=== PATIENT | female | born 1955 | race Caucasian/White ===

== ENCOUNTER 2022-06-11 10:00 | Outpatient (RCR) | payer MEDICARE, SELFPAY ==
--- NOTE | 2022-05-04 11:40 | PTOPEVAL ---
PHYSICAL THERAPY EVALUATION AND PLAN OF CARE 05-04-22 Thank you for referring Mary Anne Anton to [facility] for the diagnosis of sciatica. She is scheduled to be seen for therapy? 0-2 x/week for 5 weeks. She will be out of town on vacation during this timeframe. The plan of care includes treatment for her R knee. Please review, sign, date and return this plan of care IMELDA. I agree with and certify that the following plan of care is medically necessary. Referring Physician Date Attending Provider: KRISHNA Mcgarry Outpatient Past Medical History Past Medical History Source of Past Medical History Patient Neurological History Hx Neurological Disorders No Significant History Cardiovascular History Hx Hypertension Yes: meds Respiratory History Hx Respiratory Disorders No Significant History Gastrointestinal History Hx Gastrointestinal Disorders No Significant History Musculoskeletal History Hx Arthritis Yes: OA in both knees Endocrine History Hx Endocrine Disorders No Significant History Other History Hx Cancer Yes: breast cancer Hx Chemotherapy Yes Hx Radiation Therapy Yes Hx Other Medical Conditions Yes: lymphedema R UE Evaluation Information Diagnosis sciatica R radicular pain Onset March 24, 2022 Subjective Information gradual increase in pain after Query Text:As Reported By Patient/ yard work; just finished Family steroid pack- did help the pain; is leaving on a cruise and trip in 2 weeks; Diagnostic Tests X-Rays For This Problem No MRI For This Problem No Other Tests For This Problem No Prior Level of Function Activity Level (Last 3 Months) Occupation retired Comments Additional Prior Level of Function active lifestyle; Comments has recumbant exercise bicycle at home, was riding 30 min, but have not done for the past month due to R knee would not go all the way around and pain; Pain Assessment Pain Scale Pain Scale Used Numeric (1 - 10) Self Report Pain Assessment Bilateral Back Reported Pain Level 4 Pain Description Aching,Radiating,Sharp Pain Radiation Back,Right Leg Radicular Pain Location R LE lateral to calf constant Pain Frequency Chronic,Continuous Other Pain Description hurts Lowest Pain Intensity 0 Greatest Pain Intensity 4 Pain Aggravating Factors Stair Climbing Other Pain Aggravating Factors in/out car; sit to stand; go up/down stairs one step at
--- NOTE | 2022-06-06 14:56 | PCPTNOTE ---
On 06/06/22, the student, Donny Huitron, provided care and completed [facility] documentation on this patient. I have reviewed the student's documentation and agree with the findings.
--- NOTE | 2022-06-11 10:57 | PTOPEVAL ---
PHYSICAL THERAPY DISCHARGE 06-11-22 Refer to the clinical summary below, for her status today, compared to the initial evaluation. Discharge PT at this time; the goals were partially achieved. Thank you for referring Mary Anne Anton to [facility].? Please review, sign, date and return this Discharge report IMELDA. I agree with and certify that the following plan of care is medically necessary. Referring Physician Date Attending Provider: KRISHNA Mcgarry Subjective Information Mary Anne reports: she was Query Text:As Reported By Patient/ positive for covid, but had Family minimal symptoms--like sinus issues; leg is better, do not have any back pain; doing her exercises. Pain Assessment Pain Scale Pain Scale Used Numeric (1 - 10) Self Report Pain Assessment Right Knee(s) Reported Pain Level 1 Pain Description Sharp Radicular Pain Location lateral -distal thigh sharp pain Pain Frequency Chronic,Continuous Lowest Pain Intensity 1 Greatest Pain Intensity 2 Pain Aggravating Factors Walking Other Pain Aggravating Factors report walking tolerance of 10 min Additional Pain Comments taking tylenol and maloxicam for pain--helps Bilateral Back Reported Pain Level 0 Pain Frequency Chronic,Intermittent Lowest Pain Intensity 0 Greatest Pain Intensity 0 Pain Score Pain Score 1,0: Self Report Additional Pain Score Comments Oswestry self assessment functional score of 22% limitation in activity level; sit to stand transfer without an increase of pain in/out car transfer with pain in knee heat and massage help the knee pain have not gotten back to riding the stationary bike at home yet; tend to sleep in recliner due to knee more comfortable in recliner- discussed use of heat prior to bed, has not been doing that I Gross Lower Extremity Range of Motion R LE: Comments sitting: knee flexion 115' with report pain supine: knee extension 5'; hip flexion stretch 110'; hamstring stretch with SLR 80' Gross Low
== END 2022-06-11 16:19 | disposition home or self-care (01) ==
LOC: ANHPT 10:00
PROVIDERS: PCP Family Medicine; Visit Provider Physician Assistant Medical
DX: M54.30 Sciatica, unspecified side (principal)
CPT/HCPCS: 97014; 97110; 97112; 97140; 97162; 97530; G0283

== ENCOUNTER 2022-12-11 01:06 | Day surgery (SDC) | payer MEDICARE, SELFPAY ==
[2022-11-26 11:52] VITALS: BMI 28.4
--- NOTE | 2022-12-11 09:21 | WPDANESEPPF ---
Anes - Initial Pre Proc Eval Procedure: Operation Date: 12/11/22 10:30 Proposed Procedures p Screening Colonoscopy - Leander Choi MD Date/Time: 12/11/22 09:21 Surgeon: Leander Choi MD Pre Op Diagnosis: neoplasm screening Patient Data Age: 67 Gender: F Height: 1.65 m Weight: 77.5 kg Allergies Allergy/AdvReac Type Severity Reaction Status Date / Time No Known Allergies Allergy Verified 12/11/22 09:20 Home Medications Medication Instructions Recorded Confirmed Type calcium carbonate 500 mg calcium 500 mg PO DAILY 05/06/20 11/27/22 History (1,250 mg) tablet (Calcium 500) cholecalciferol (vitamin D3) 25 25 mcg PO DAILY 05/06/20 11/27/22 History mcg (1,000 unit) tablet (Vitamin D3) ferrous sulfate 325 mg (65 mg 65 mg PO DAILY 05/06/20 11/27/22 History iron) tablet (Iron (ferrous sulfate)) letrozole 2.5 mg tablet 2.5 mg PO DAILY 05/06/20 11/27/22 History pzwevvdg-wzh-pslf-FA-Ca carb-vit K 1 tablet PO DAILY 05/06/20 11/27/22 History 18 mg iron-400 mcg-500 mg tablet (Women's Multivitamin) omega-3 fatty acids 1,000 mg 1,000 mg PO DAILY 10/24/20 11/27/22 History capsule (Fish Oil Concentrate) lisinopril 10 mg tablet 10 mg PO DAILY #90 tabs 09/21/22 11/27/22 Rx acetaminophen 650 mg tablet 650 mg PO BID 11/26/22 11/27/22 History biotin 10,000 mcg capsule 10,000 mcg PO DAILY 11/26/22 11/27/22 History Patient hx anesthesia problems: none Family hx anesthesia problems: none Results Review: All pre-operative results and documents have been reviewed as part of the pre-operative evaluation. [facility] Past Medical History Medical History (Updated 11/27/22 @ 16:17 by Farida Hoskins MD) Anemia Chronic renal insufficiency, stage III (moderate) Essential hypertension H/O malignant neoplasm of breast Lymphedema of right upper extremity Sciatic leg pain Family History Family History Mother Hypertension Father Malignant neoplasm of prostate Social History Social History (Updated 11/27/22 @ 16:10 by Monica Renee MA) Smoking status: Never smoker Second hand tobacco smoke exposure: No Alcohol intake: current Alcohol use details: RARELY Substance use: never Substance use type: does not use Lack of Transportation: No Lack of Food: Never True Current Housing: I Have Housing Concerned About Future Housing: No Difficulty Paying Gas/Electric Bills: No Difficulty Paying for Meds: No Currently Unemployed: No Education: Trade/Vocational Certificate Difficulty w/ Childcare or Family Care: No Living arrangements: with family Gender identity (if verbalized by the patient): Female Spiritual care concerns: No Agree to blood products: Yes Anes - Eval Final PreProcedure Day of Procedure 12/11/22 09:21 Patient weight: overweight Heart: regular rate and rhythm Lungs: clear to auscultation Airway: Mallampati scale class II Neurological: alert and oriented Last oral intake: >/= 8 hours ASA classification: III Emergent: no Anesthetic plan: proceed Anesthesia type and monitoring: general GIVS and standard monitoring Results Review: All pre-operative results and documents have been reviewed as part of the pre-operative evaluation. Informed Consent: The patient's anesthetic plan and its attendant risks and benefits were discussed with the patient/family/POA. Questions were solicited and answers provided to the satisfaction of the patient/family/POA.
[2022-12-11 09:22] VITALS: BP 136/79; PULSE 94; RESP 18; TEMP 36.6; O2SAT 99; BMI 28.5
[2022-12-11] MEDS: LACTATED RINGERS 1,000 ML 150 ML IV CONT (09:25)
--- NOTE | 2022-12-11 09:41 | PM.HPGS ---
History of Present Illness History of Present Illness Consent: Risks, benefits, and alternatives have been discussed and questions answered. Patient agrees to proceed with procedure. Chief complaint: neoplasm screening Narrative: Mary Anne Anton is a 67 year old female Presents for screening colonoscopy. Patient's current weight appetite and bowel movements are normal. Patient denies abdominal pain. She has had no bleeding. Family history noncontributory. Review of Systems Review of Systems: Review of systems noncontributory. [facility] Past Medical History Medical History (Updated 12/11/22 @ 09:42 by Leander Choi MD) Anemia Chronic renal insufficiency, stage III (moderate) Essential hypertension H/O malignant neoplasm of breast Lymphedema of right upper extremity Sciatic leg pain Family History Family History Mother Hypertension Father Malignant neoplasm of prostate Social History Social History (Updated 11/27/22 @ 16:10 by Monica Renee MA) Smoking status: Never smoker Second hand tobacco smoke exposure: No Alcohol intake: current Alcohol use details: RARELY Substance use: never Substance use type: does not use Lack of Transportation: No Lack of Food: Never True Current Housing: I Have Housing Concerned About Future Housing: No Difficulty Paying Gas/Electric Bills: No Difficulty Paying for Meds: No Currently Unemployed: No Education: Trade/Vocational Certificate Difficulty w/ Childcare or Family Care: No Living arrangements: with family Gender identity (if verbalized by the patient): Female Spiritual care concerns: No Agree to blood products: Yes Meds Home Medications and Allergies Home Medications Medication Instructions Recorded Confirmed Type calcium carbonate 500 mg calcium 500 mg PO DAILY 05/06/20 11/27/22 History (1,250 mg) tablet (Calcium 500) cholecalciferol (vitamin D3) 25 25 mcg PO DAILY 05/06/20 11/27/22 History mcg (1,000 unit) tablet (Vitamin D3) ferrous sulfate 325 mg (65 mg 65 mg PO DAILY 05/06/20 11/27/22 History iron) tablet (Iron (ferrous sulfate)) letrozole 2.5 mg tablet 2.5 mg PO DAILY 05/06/20 11/27/22 History rsinswlz-hhu-unzh-FA-Ca carb-vit K 1 tablet PO DAILY 05/06/20 11/27/22 History 18 mg iron-400 mcg-500 mg tablet (Women's Multivitamin) omega-3 fatty acids 1,000 mg 1,000 mg PO DAILY 10/24/20 11/27/22 History capsule (Fish Oil Concentrate) lisinopril 10 mg tablet 10 mg PO DAILY #90 tabs 09/21/22 11/27/22 Rx acetaminophen 650 mg tablet 650 mg PO BID 11/26/22 11/27/22 History biotin 10,000 mcg capsule 10,000 mcg PO DAILY 11/26/22 11/27/22 History Allergies Allergy/AdvReac Type Severity Reaction Status Date / Time No Known Allergies Allergy Verified 12/11/22 09:20 Vital Signs Vital Signs - 24 hr 12/11/22 09:22 Temperature 97.9 F Pulse Rate 94 Respiratory Rate 18 Blood Pressure 136/79 Pulse Oximetry 99 Oxygen Delivery Room Air Exam Narrative: Physical exam reveals patient to be alert. Vital signs stable. HEENT exam is unremarkable. Patient is anicteric. Lungs are clear to auscultation and percussion. Heart is without murmur or extra sounds. Abdomen bowel sounds are present soft nontender with no organomegaly. Digital external rectal exam is normal. Assessment and Plan Assessment and plan (1) Encounter for screening colonoscopy: Code(s): Z12.11 - Encounter for screening for malignant neoplasm of colon Status: Acute Assessment and Plan: Patient presents for screening colonoscopy. She appears to be at average risk for colon polyps. Further recommendations may be given after endoscopy.
[2022-12-11 10:08] VITALS: BP 94/55; PULSE 74; RESP 19; O2SAT 97
[2022-12-11 10:18] VITALS: BP 101/67; PULSE 72; RESP 18; O2SAT 98
[2022-12-11 10:28] VITALS: BP 113/67; PULSE 72; RESP 15; O2SAT 99
== END 2022-12-11 10:37 | disposition home or self-care (01) ==
PROVIDERS: PCP Family Medicine; Visit Provider Internal Medicine Gastroenterology
PROC: 0DJD8ZZ Inspection of Lower Intestinal Tract, Via Natural or Artificial Opening Endoscopic (ICD-10-PCS; CPT 45378; principal; 2022-12-11 10:30)
DX: Z12.11 Encounter for screening for malignant neoplasm of colon (principal); K64.8 Other hemorrhoids; I12.9 Hypertensive chronic kidney disease with stage 1 through stage 4 chronic kidney disease, or unspecified chronic kidney disease; N18.30 Chronic kidney disease, stage 3 unspecified; D64.9 Anemia, unspecified; Z85.3 Personal history of malignant neoplasm of breast
CPT/HCPCS: 45378; J2704; J7120

== ENCOUNTER 2022-12-21 11:17 | Outpatient (CLI) | payer MEDICARE, SELFPAY ==
--- NOTE | 2022-12-21 11:29 | ECG_ITS ---
Measurements Intervals [place] Rate: 84 P: 30 MO: 180 QRS: 10 QRSD: 79 T: 26 QT: 349 QTc: 413 Interpretive Statements SINUS RHYTHM LOW QRS VOLTAGE IN PRECORDIAL LEADS [QRS DEFLECTION < 1.0 mV IN CHEST LEADS] BORDERLINE ECG NO PREVIOUS ECG AVAILABLE FOR COMPARISON Electronically Signed On 12-21-2022 13:16:01 [employer]ICENSED [employer]AL[employer] by Leonardo Hamilton M.D.
== END 2022-12-21 11:18 | disposition home or self-care (01) ==
PROVIDERS: PCP Family Medicine; Visit Provider Family Medicine
DX: I10 Essential (primary) hypertension (principal)
CPT/HCPCS: 93005

== ENCOUNTER 2022-12-24 09:59 | Outpatient (CLI) | payer MEDICARE, SELFPAY ==
[2022-12-24 11:01] LABS: Basophils Percent Auto 0.8 % (0.2-1.2); Eosinophils Absolute Auto 0.1 K/mm3 (0-0.3); Eosinophils Percent Auto 2.1 % (0-4.4); Hematocrit 33.9 % (37.0-47.0); Hemoglobin 11.2 g/dL (12.0-15.0); Immature Granulocyte Absolute 0.01 K/mm3 (0.00-0.031); Immature Granulocyte Percent A 0.2 % (0-0.5); Lymphocytes Absolute Auto 1.46 K/mm3 (0.9-3.2); Lymphocytes Percent Auto 30.4 % (18.3-44.2); Mean Corpuscular Hemoglobin 29.9 pg (26-34); Mean Corpuscular Volume 90.6 fl (80-100); Mean Platelet Volume 8.6 fl (7.4-10.4); Monocytes Absolute Auto 0.4 K/mm3 (0.1-0.6); Monocytes Percent Auto 7.9 % (2.6-8.5); Neutrophils Absolute Auto 2.8 K/mm3 (1.3-6.7); Neutrophils Percent Auto 58.6 % (45.5-73.1); Platelet Count Result 258 k/mm3 (150-375); Red Blood Count 3.74 M/mm3 (4.2-5.4); Red Cell Distribution Width 12.1 % (11.5-14.5); White Blood Count 4.8 K/mm3 (4.5-10.0)
[2022-12-24 11:09] LABS: Albumin Level 4.6 g/dL (3.5-5.1); Anion Gap 7 mmol/L (8-16); Blood Urea Nitrogen 36 mg/dL (7-17); Calcium 9.2 mg/dL (8.4-10.2); Carbon Dioxide 27 mmol/L (22-30); Chloride 101 mmol/L (98-107); Estimated Glomerular Filt Rate 41; Glucose 83 mg/dL (65-110); Hemoglobin A1C 5.4 % (<5.7); Potassium 4.2 mmol/L (3.4-5.0); Sodium 135 mmol/L (137-145)
[2022-12-24 11:10] LABS: Partial Thromboplastin Time 26.8 SECONDS (22.3-36.8)
[2022-12-24 11:12] LABS: Urine Cotinine NEGATIVE
== END 2022-12-24 10:00 | disposition home or self-care (01) ==
PROVIDERS: Anesthesiology; PCP Family Medicine; Visit Provider Orthopaedic Surgery
DX: M17.0 Bilateral primary osteoarthritis of knee (principal); N18.30 Chronic kidney disease, stage 3 unspecified
CPT/HCPCS: 80048; 80307; 82040; 83036; 85025; 85610; 85730; 87081

== ENCOUNTER 2023-01-09 00:22 | Day surgery (SDC) | payer MEDICARE, SELFPAY ==
--- NOTE | 2022-12-24 09:58 | PC.NURSE ---
PRE-OP INSTRUCTIONS, PLEASE READ CAREFULLY Report to the Outpatient Waiting Room, entrance under the green pavilion located off [facility], at time _0930_ on date _01/09/23_. Planned Procedure Time: _1130_. PACK A SMALL OVERNIGHT BAG AND LEAVE IN THE CAR ALONG WITH YOUR WALKER Time changes happen often and if your time is changed the preop area will call you the afternoon before. - You and your visitor will be asked to self-screen and do not enter if you have any COVID symptoms. - Only one visitor is requested with a max of two and NO children visitors are allowed at this time. - The patient visitor may be requested to leave or wait in car when not with patient due to distancing restrictions. - A mask is optional within the hospital at this time. -VISITING HOURS 8AM-8PM Patients may have clear liquids (water, carbonated beverages, clear teas, apple juice) until 3 hours prior to surgery (0830 AM) with a maximum of 20 ounces. - No food from midnight until time of surgery Take the following medications with a SIP of water the morning of surgery: _TYLENOL IF NEEDED_ DO NOT STOP ANY OF YOUR OTHER PRESCRIPTION MEDICATIONS PRIOR TO SURGERY ?EXCEPT THE FOLLOWING Medications to discontinue -_LETROZOLE PER DR. GALLEGOS'S INSTRUCTIONS Medications to discontinue per ANESTHESIA - _VITAMINS AND SUPPLEMENTS 3 DAYS PRIOR TO SURGERY, Date to take last dose 01/05/23_ Please no make-up, nail burmese, hairspray, perfume, deodorant, or body powder the day of surgery. No jewelry (including any body piercings) or valuables the day of surgery, leave them at home. Please take a shower or bath the night before, or the morning of, surgery with an antibacterial soap. Wear comfortable, loose fitting clothing. - Jewelry must be removed prior to entering the operating room. Rings and piercings that are not removed may be cut off. - The hospital will not accept responsibility for valuables. - Please leave all valuables, including medications, at home the day of surgery. If you are going home after surgery, a licensed helper/driver must drive you home. - NO public transportation without another adult if you receive anesthesia. - We recommend that an adult stay with you for 24 hours following discharge. - We also recommend that you do not drive, make important decision, drink alcoholic beverages, or take any drugs that were not prescribed by your health care provider for at least 24 hours after your discharge time. Follow any additional instructions given to you from your surgeon. If you or anyone in your household have experienced Covid symptoms in the past week, please notify your surgeon or the nurse liaison at the phone number below for possible testing. Instructions given to _PATIENT_and asked if any additional questions and then verbalized understanding. Patient advised to call surgeon office or pre surgery nurse liaison [phone] if any additional questions.
[2022-12-24 10:19] VITALS: BP 126/64; PULSE 84; RESP 18; TEMP 36.6; O2SAT 97; BMI 29.4
--- NOTE | 2023-01-07 12:37 | PM.IMHP ---
H&P: HPI History of Present Illness Date/Time: 01/07/23 12:37 Chief Complaint: Bilateral knee DJD Narrative: 67 year old female patient of Dr. Guerra who presents today for a left total knee arthroplasty with cortisone injection on the right. She has been having severe pain in her knees for years. She has been getting cortisone injections in the knees, last ones were in August of last year, which only lasted about a week and a half. She has chronic kidney disease and therefore unable take anti-inflammatories. She does utilize Tylenol but this is not helping. She has advanced medial compartment osteoarthritis in the left knee and moderately severe on the right. At this point patient feels that she is ready to proceed with total knee arthroplasty rather continue nonsurgical treatment Review of Systems Review of Systems: All systems reviewed & are unremarkable except as noted in HPI and below PMFSH Past Medical History Medical History Anemia Chronic renal insufficiency, stage III (moderate) Essential hypertension H/O malignant neoplasm of breast Lymphedema of right upper extremity Sciatic leg pain Family History Family History Mother Hypertension Father Malignant neoplasm of prostate Social History Social History Smoking status: Never smoker Second hand tobacco smoke exposure: No Additional smoking assessment comments: PT DENIES ALL FORMS OF TOBACCO USE Alcohol intake: current Alcohol use details: STATES MAYBE 1 DRINK A MONTH IF ANY Substance use: never Substance use type: does not use Lack of Transportation: No Lack of Food: Never True Current Housing: I Have Housing Concerned About Future Housing: No Difficulty Paying Gas/Electric Bills: No Difficulty Paying for Meds: No Currently Unemployed: No Education: Trade/Vocational Certificate Difficulty w/ Childcare or Family Care: No Living arrangements: with family Gender identity (if verbalized by the patient): Female Spiritual care concerns: No Agree to blood products: Yes Meds Home Medications and Allergies Home Medications Medication Instructions Recorded Confirmed Type calcium carbonate 500 mg calcium 500 mg PO DAILY 05/06/20 12/24/22 History (1,250 mg) tablet (Calcium 500) cholecalciferol (vitamin D3) 25 25 mcg PO DAILY 05/06/20 12/24/22 History mcg (1,000 unit) tablet (Vitamin D3) ferrous sulfate 325 mg (65 mg 65 mg PO DAILY 05/06/20 12/24/22 History iron) tablet (Iron (ferrous sulfate)) letrozole 2.5 mg tablet 2.5 mg PO DAILY 05/06/20 12/24/22 History yrascdmm-mbb-auxw-FA-Ca carb-vit K 1 tablet PO DAILY 05/06/20 12/24/22 History 18 mg iron-400 mcg-500 mg tablet (Women's Multivitamin) omega-3 fatty acids 1,000 mg 1,000 mg PO DAILY 10/24/20 12/24/22 History capsule (Fish Oil Concentrate) lisinopril 10 mg tablet 10 mg PO DAILY #90 tabs 09/21/22 12/24/22 Rx acetaminophen 650 mg tablet 650 mg PO BID 11/26/22 12/24/22 History biotin 10,000 mcg capsule 10,000 mcg PO DAILY 11/26/22 12/24/22 History plant stanol suri 450 mg capsule 900 mg PO QAM 12/24/22 12/24/22 History (Cholest Off Plus) vit C 250 mg-vit E 90 mg-zinc 40 1 tablet PO BID 12/24/22 12/24/22 History mg-copper 1 ay-ywnqns-loivye capsule Allergies Allergy/AdvReac Type Severity Reaction Status Date / Time No Known Allergies Allergy Verified 12/24/22 10:14 Exam Narrative: 67-year-old female very alert pleasant. She is 5 ft 4 and 183 lb, BMI is 31.4. Left knee range of motion is from 7-125 degrees. She has moderate effusion. Full range of motion of the hips without discomfort negative Stinchfield maneuver bilaterally. Normal quad strength. Moderate tenderness over the medial joint lines to palpation in both knees. There is no edema in either lower
[2023-01-09] VITALS (12 sets, daily range): BP systolic 117–134; BP diastolic 50–66; PULSE 54–81; RESP 12–20; TEMP 36.1–37.2; O2SAT 94–100
--- NOTE | ~2023-01-09 | XR_ITS ---
EXAMINATION: XR surgery orthopedic DATE: 01/09/2023 13:57 INDICATION: Foreign body. TECHNIQUE: 2 intraoperative views of the left knee were obtained. COMPARISON: None. FINDINGS: There are osteotomies of the distal femur and proximal tibia. A radiopaque foreign body ove rlies the patella on one of the views, which may be the patellar arthroplasty component. IMPRESSION: 1. Total left knee arthroplasty in progress. Reviewed, dictated and finalized at location A. [facility] (CAD)
--- NOTE | ~2023-01-09 | XR_ITS ---
EXAMINATION: [id number] DATE: 01/09/2023 15:30 RN ADVANCED INDICATION: Left total knee arthroplasty TECHNIQUE: 2 views left knee FINDINGS: There is a left total knee arthroplasty in expected position. Subcutaneous gas with fluid and air in the joint are consistent with recent surgery. No evidence of periprosthetic fracture. IMPRESSION: 1. Recent left total knee arthroplasty. Reviewed, dictated and finalized at location B. ADVANCED
[2023-01-09] MEDS: LACTATED RINGERS 1,000 ML 30 ML IV CONT ×2 (10:30→15:21)
--- NOTE | 2023-01-09 11:00 | WPDANESEPPF ---
Anes - Initial Pre Proc Eval Procedure: Operation Date: 01/09/23 11:30 Proposed Procedures p Left Total Knee Arthroplasty, Cortisone Injection Right Knee - Tito Padilla MD Date/Time: 01/09/23 11:00 Surgeon: Tito Padilla MD Pre Op Diagnosis: O.A.Nakul Knees Patient Data Age: 67 Gender: F Height: 1.65 m Weight: 80.2 kg Last Vital Signs Temp 97.9 F 12/24/22 10:19 Pulse 84 12/24/22 10:19 Resp 18 12/24/22 10:19 BP 126/64 12/24/22 10:19 Pulse Ox 97 12/24/22 10:19 O2 Del Method Room Air 12/24/22 10:19 Allergies Allergy/AdvReac Type Severity Reaction Status Date / Time No Known Allergies Allergy Verified 01/09/23 09:45 Home Medications Medication Instructions Recorded Confirmed Type calcium carbonate 500 mg calcium 500 mg PO DAILY 05/06/20 01/09/23 History (1,250 mg) tablet (Calcium 500) cholecalciferol (vitamin D3) 25 25 mcg PO DAILY 05/06/20 01/09/23 History mcg (1,000 unit) tablet (Vitamin D3) ferrous sulfate 325 mg (65 mg 65 mg PO DAILY 05/06/20 01/09/23 History iron) tablet (Iron (ferrous sulfate)) letrozole 2.5 mg tablet 2.5 mg PO DAILY 05/06/20 01/09/23 History gaajtwnh-rqi-sufr-FA-Ca carb-vit K 1 tablet PO DAILY 05/06/20 01/09/23 History 18 mg iron-400 mcg-500 mg tablet (Women's Multivitamin) omega-3 fatty acids 1,000 mg 1,000 mg PO DAILY 10/24/20 01/09/23 History capsule (Fish Oil Concentrate) lisinopril 10 mg tablet 10 mg PO DAILY #90 tabs 09/21/22 01/09/23 Rx acetaminophen 650 mg tablet 650 mg PO BID 11/26/22 01/09/23 History biotin 10,000 mcg capsule 10,000 mcg PO DAILY 11/26/22 01/09/23 History plant stanol suri 450 mg capsule 900 mg PO QAM 12/24/22 01/09/23 History (Cholest Off Plus) vit C 250 mg-vit E 90 mg-zinc 40 1 tablet PO BID 12/24/22 01/09/23 History mg-copper 1 ts-ndppff-xofyin capsule Patient hx anesthesia problems: none Family hx anesthesia problems: none Results Review: All pre-operative results and documents have been reviewed as part of the pre-operative evaluation. [facility] Past Medical History Medical History Anemia Chronic renal insufficiency, stage III (moderate) Essential hypertension H/O malignant neoplasm of breast Lymphedema of right upper extremity Sciatic leg pain Family History Family History Mother Hypertension Father Malignant neoplasm of prostate Social History Social History Smoking status: Never smoker Second hand tobacco smoke exposure: No Additional smoking assessment comments: PT DENIES ALL FORMS OF TOBACCO USE Alcohol intake: current Alcohol use details: STATES MAYBE 1 DRINK A MONTH IF ANY Substance use: never Substance use type: does not use Lack of Transportation: No Lack of Food: Never True Current Housing: I Have Housing Concerned About Future Housing: No Difficulty Paying Gas/Electric Bills: No Difficulty Paying for Meds: No Currently Unemployed: No Education: Trade/Vocational Certificate Difficulty w/ Childcare or Family Care: No Living arrangements: with family Gender identity (if verbalized by the patient): Female Spiritual care concerns: No Agree to blood products: Yes Anes - Eval Final PreProcedure Day of Procedure 01/09/23 11:00 Patient weight: normal Heart: regular rate and rhythm Lungs: clear to auscultation Airway: Mallampati scale class III Neurological: alert and oriented Last oral intake: >/= 8 hours ASA classification: III Emergent: no Anesthetic plan: proceed Anesthesia type and monitoring: general ETT and standard monitoring Results Review: All pre-operative results and documents have been reviewed as part of the pre-operative evaluation. Informed Consent: The patient's anesthetic plan and its attendant risks and benefits were discussed with
--- NOTE | 2023-01-09 11:11 | WPDHPUPDATE1 ---
History and Physical Update Update Date/Time: 01/09/23 11:11 History and Physical has been reviewed, including an updated exam of the patient. There are NO changes in the patient's condition. Risks, benefits, and alternatives have been discussed and questions answered. Patient agrees to proceed with procedure.
[2023-01-09] MEDS: TRANEXAMIC ACID 1,000MG/ISO100 1,000 MG/100 ML BAG 200 MG IVPB (11:25)
[2023-01-09] MEDS: ceFAZolin 2 GM/D5W 50 ML 2 GM/50 ML BAG IVPB ×2 (11:51→14:35)
[2023-01-09] MEDS: ceFAZolin SODIUM 1 GM VIAL 3 GM (12:30)
[2023-01-09] MEDS: GENTAMICIN BONE CEMENT REFOBACIN 1 EACH TOPICAL (12:31)
[2023-01-09] MEDS: methylPREDNISolone ACETATE 80 MG/ML VIAL I-ARTICULR (12:32)
[2023-01-09] MEDS: TRANEXAMIC ACID 1,000 MG/10 ML AMPUL 1000 MG IV PUSH (14:28)
--- NOTE | 2023-01-09 15:02 | W.PM.PROC2 ---
Procedure Note - Detailed Date of Procedure 01/09/23 Pre-op Diagnosis O.A.Nakul Knees Post-op Diagnosis Same Procedure Performed Depo-Medrol and lidocaine injection right knee, left total knee arthroplasty Surgeon Tito Padilla MD Senior Telecommunications Consultant [facility] Anesthesia General Description of Procedure patient was brought to the operating room and general anesthesia was administered. Patient received 2 g of Ancef weight based vancomycin 1 g of tranexamic acid preoperatively. The right knee was prepped with ChloraPrep and 80 mg of Depo-Medrol and 3 cc of 1% lidocaine were injected into the right knee without difficulty. The left knee was prepped draped usual fashion. Limb was exsanguinated tourniquet elevated to 250 mmHg. A 7 in longitudinal midline incision was made and a vastus medialis splitting approach utilized splitting the vastus medialis at the superior pole of the patella. Infrapatellar and suprapatellar fat pads were excised a quadriceps synovectomy carried out. The patella was arthritic the medial side with relative deformity and I felt resurfacing would be best for her. The patella measured 24.5 mm in thickness was cut to 16.5 mm. A protector cap was applied. A guide tania was inserted on the femoral canal after aspiration of canal contents using the 5 degree valgus cutting bushing 9 mm of bone removed the distal femur. Next the tibial plateau was cut. We made a 6 Cynthia cut off the low point medial tibial plateau where she had a fair amount of central wear on the tibial plateau with eburnation and grooving. The same was true with the medial femoral condyle. ACL was deficient. Large osteophytes removed from the medial femoral condyle and osteophytes and did not have capsular attachment were trimmed with a needle-nose rongeur on the tibial plateau. The tibial cut was made perpendicular to the axis of the tibia. Meniscal remnants were excised the PCL recessed. In flexion the knee measured 8 mm medially and 13 mm laterally. The sizing guide was applied to the distal femur set at 5? of external rotation which matched Whitesides line. Posterior referencing pinholes were placed. Based on her preoperative templating we placed the 67 0.5 vanguard tibial cutting block on the femur and this gave a nice cut flush with the anterior cortex. Posterior chamfer cuts were made. The 67.5 trial component however did overhang a mm medially and a mm and half laterally it was. It was a little bit too wide as we expected. We trialed with the 71 tray 10 CR. At 90? of flexion knee was a little bit tight medially with no play with a Lam elevator. Laterally there is 2 mm of gapping to varus stress at 90?. In extension the knee came out fully. I expected that we may have enough play in flexion medially after completing the tibial resurfacing and we sized the tibia to a 71 that fit line to line anteromedial to posterolateral. This was punched. We trialed with the 10 mm insert. In extension the knee came out to full extension with no play medially and about 3-4 mm lateral opening in extension to varus stress. In flexion I felt that the medial side was a bit tight with no significant translational plate and the lateral side opened up a full 2 mm to 2-1/2. Osteophyte was removed from the medial tibial plateau at this time including the posteromedial corner of the medial tibial plateau and with this the 10 insert the knee came out to full extension now with a mm of medial opening but it was still too tight at 90? medially. We then moved to downsize the femoral component size so would not overhang medially and laterally. Taking advantage of the fact that we were little bit tight medially in flexion we removed the medial pin from the 65 cutting block allowing us to dial in about a degree and half of external rotation to remove about a mm to a mm and half of bone from the posterior aspect of the medial femoral condyle. This was stabilized with the threaded pins and AP and
--- NOTE | 2023-01-09 15:23 | PM.OP ---
Procedure Note - Brief Procedure Note - Brief Date of procedure: 01/09/23 Pre-op diagnosis: O.A.Nakul Knees Left knee DJD Procedure performed: left total knee arthroplasty Description of procedure: 67-year-old female underwent left total knee arthroplasty on 01/09. I was involved the procedure including positioning patient on the OR table. Persisting to time surgery as well as wound closure. Assisting in getting the patient to recovery room. Total time spent with 3-1/2 hours Surgeon: KRISHNA Aceves
[2023-01-09] MEDS: fentaNYL CITRATE INJ (*CRX) 100 MCG/2 ML VIAL 25 MCG IV PUSH ×4 (15:35→16:01)
[2023-01-09] MEDS: SODIUM CHLORIDE 0.9% IV 1,000 ML 125 ML IV CONT (16:56)
[2023-01-09] MEDS: oxyCODONE HCL (*CRX) 5 MG TAB IR PO ×2 (16:56→21:15)
[2023-01-09] MEDS: SENNA/DOCUSATE SODIUM TABLET 2 TAB PO (17:44)
[2023-01-09] MEDS: ceFAZolin 1 GM/NS 50 ML 1 GM/50 ML BAG IVPB (22:07)
--- NOTE | 2023-01-09 22:43 | PM.IMCN ---
Assessment and Plan Assessment and plan (1) S/P total knee arthroplasty: Code(s): Z96.659 - Presence of unspecified artificial knee joint Status: Acute Assessment and Plan: Pain management as per orthopedic physician PT OT per orthopedic physician Anticoagulation per orthopedic physician. According to the records the patient is on Eliquis and has on SCDs Postop care per orthopedic physician. (2) H/O malignant neoplasm of breast: Code(s): Z85.3 - Personal history of malignant neoplasm of breast Status: Acute Assessment and Plan: The patient was continued on letrozole The patient question whether not this medication could cause her renal failure and I could not find any side effects that suggested this (3) Chronic renal insufficiency, stage III (moderate): Code(s): N18.30 - Chronic kidney disease, stage 3 unspecified Status: Acute Assessment and Plan: The patient stated that she is followed outpatient by Nephrology and they are just monitoring her. The patient is to avoid NSAIDs. Repeat labs in the a.m. Patient's creatinine is currently 3.1 and her GFR is 41. (4) Anemia: Code(s): D64.9 - Anemia, unspecified Status: Acute Assessment and Plan: Could be related to her chronic renal failure. Her H&H is 11.2 and 33.9 with her last blood draw on 12/24/2022. the patient is at her baseline. Please continue to monitor. Plan I think Dr. Padilla for the opportunity to consult on this pleasant lady. We will continue to Co managed her care alongside you. HPI Data of Consult Consult date: 01/10/23 Requesting Physician: Tito Padilla MD Primary Care Provider: Sammie Guerra MD Consult Narrative Narrative: Mary Anne Anton is a 67 year old female who has severe osteoarthritis and has tried conservative measures. The patient has osteoarthritis in both of her knees. The patient presented to the hospital today for left total knee arthroplasty and a cortisone injection to the right knee. The patient stated that she had a cortisone injection August of last year and the effects only lasted for about a week and half. The patient is no longer able to take anti-inflammatories due to her chronic renal failure. The patient stated that she had been on anti-inflammatories in the past and then was taken off of it because of her chronic kidney disease. The patient had been taking Tylenol but stated that it really does not help with her discomfort. She was having difficulty sleeping at night due to the discomfort. The patient has tried repositioning and different exercises but they still did not help. Please see operative note. The patient had a left total knee arthroplasty today and a Depo Medrol and lidocaine injection in the right knee. Patient's creatinine is anywhere between 1.18 and 1.4. The patient stated that she has been to a launchman and at this time she is just being monitored. Hospitalist consult was requested per Dr. Padilla. Date of service for the consult was 01/09/2023 Review of Systems Review of Systems: See HPI All systems reviewed & are unremarkable except as noted in HPI and below Constitutional: Constitutional: Reports as per HPI and Reports no additional constitutional complaints Eyes: Eyes: Reports as per HPI and Reports no additional eye complaints ENT: Reports system reviewed and no additional complaints, except as documented and Reports Normal hearing present Cardiovascular: Cardiovascular: Reports no additional cardiovascular complaints Respiratory: Respiratory: Reports no additional respiratory complaints and Reports no additional respiratory complaints Gastrointestinal: Gastrointestinal: Reports as per HPI and Reports no additional gastrointestinal complaints Musculoskeletal: Musculoskeletal: Reports no additional musculoskeletal complaints Integumentary/Breasts: Skin/Breast: Reports system reviewed and no additional complaints,
[2023-01-10] MEDS: ACETAMINOPHEN 500 MG TABLET 1000 MG PO ×3 (00:42→12:58)
[2023-01-10] MEDS: oxyCODONE HCL (*CRX) 5 MG TAB IR PO ×4 (02:11→12:59)
[2023-01-10 03:57] VITALS: BP 120/48; PULSE 72; RESP 18; TEMP 36.6; O2SAT 100
[2023-01-10] MEDS: ceFAZolin 1 GM/NS 50 ML 1 GM/50 ML BAG IVPB ×2 (06:03→14:46)
--- NOTE | 2023-01-10 07:40 | PM.PNORT ---
Subjective Subjective Date/Time Seen: 01/10/23 07:40 Postop day 1 patient is alert. Afebrile vital signs are stable. She is having a little bit increased pain. We will remind nursing to give her 2 pain pills if needed. Her dressing is dry and and intact. Minimal swelling in the knee. Morning labs and not been completed yet. The plan will be to have patient work with therapy this morning and again this afternoon. If she continues to do well plan discharging her home this afternoon. Objective Data Vital Signs Vital Signs: Vital Signs - 24 hr 01/09/23 09:43 01/09/23 15:21 01/09/23 15:35 Temperature 36.1 C L 37.2 C Pulse Rate 79 70 62 Respiratory Rate 20 12 12 Blood Pressure 129/63 122/60 117/54 L Pulse Oximetry 98 100 100 Oxygen Delivery Room Air Simple Face Mask Simple Face Mask Oxygen Flow Rate 6 6 01/09/23 15:50 01/09/23 16:05 01/09/23 16:20 Temperature Pulse Rate 57 L 56 L 67 Respiratory Rate 12 12 16 Blood Pressure 124/58 L 121/56 L 134/59 L Pulse Oximetry 100 100 100 Oxygen Delivery Simple Face Mask Nasal Cannula Nasal Cannula Oxygen Flow Rate 6 3 3 01/09/23 16:45 01/09/23 17:00 01/09/23 16:45 Temperature 36.4 C L 36.2 C L Pulse Rate 54 L 71 Respiratory Rate 12 14 Blood Pressure 128/56 L 123/59 L Pulse Oximetry 98 100 100 Oxygen Delivery Nasal Cannula Oxygen Flow Rate 2 01/09/23 17:30 01/09/23 16:45 01/09/23 18:41 Temperature 36.1 C L 36.4 C L 36.2 C L Pulse Rate 55 L 54 L 60 Respiratory Rate 14 12 16 Blood Pressure 119/66 128/56 L 133/50 L Pulse Oximetry 100 98 100 Oxygen Delivery Oxygen Flow Rate 01/09/23 20:49 01/09/23 23:48 01/10/23 03:57 Temperature 36.3 C L 36.6 C 36.6 C Pulse Rate 63 81 72 Respiratory Rate 18 18 18 Blood Pressure 124/53 L 133/52 L 120/48 L Pulse Oximetry 97 94 100 Oxygen Delivery Oxygen Flow Rate Intake/Output Intake/Output: Intake & Output 01/07/23 01/08/23 01/09/23 03/02/23 23:59 23:59 23:59 23:59 Intake Total 750 400 Output Total 950 Balance 750 -550 Meds/Results Medications: Active Medications Generic Name Dose Route Start Last Admin Trade Name Freq PRN Reason Stop Dose Admin Acetaminophen 1,000 mg 01/10/23 00:00 01/10/23 06:03 Acetaminophen 500 Mg Tablet PO 1,000 mg Q6HR CARLOS Administration Apixaban 2.5 mg 01/10/23 09:00 Apixaban 2.5 Mg Tablet PO Q12HR [facility] Calcium Carbonate 500 mg 01/10/23 09:00 Calcium Carbonate (Oscal) 500 Mg Tablet PO DAILY [facility] Cyclobenzaprine HCl 10 mg 01/09/23 16:29 Cyclobenzaprine Hcl 10 Mg Tablet PO Q8H PRN Muscle Spasm Doxycycline Hyclate 100 mg 01/10/23 09:00 Doxycycline Hyclate 100 Mg Tablet PO 01/22/23 08:59 Q12HR [facility] Ferrous Sulfate 324 mg 01/10/23 08:00 Ferrous Sulfate 324 Mg Tablet PO DAILY@0800 [facility] Cefazolin Sodium 1 gm in 50 mls @ 100 mls/hr 01/09/23 23:00 01/10/23 06:33 Ancef 1 Gm/Ns 50 Ml IVPB 01/10/23 15:29 Infused Q8H [facility] Infusion Vancomycin HCl 1,000 mg in 250 mls @ 250 mls/hr 01/10/23 10:00 Vancomycin 1,000 Mg/D5w 250 Ml IVPB 01/10/23 10:59 ONCE ONE Letrozole 2.5 mg 01/10/23 09:00 Letrozole (*Chemo) 2.5 Mg Tablet PO DAILY [facility] Morphine Sulfate 2 mg 01/09/23 16:29 Morphine Sulfate (*Crx) 2 Mg/Ml Inj IV PUSH Q1H PRN Pain Rated 7-10 Multivitamins/Calcium 1 tablet 01/10/23 09:00 Therapeutic Multivitamins/Minerals Tab (*Bkc) PO DAILY [facility] Naloxone HCl 0.1 mg 01/09/23 16:29 Naloxone Hcl 0.4 Mg/Ml Vial IV PUSH Q2M PRN Opiate Reversal Oxycodone HCl 5 mg 01/09/23 17:00 01/10/23 05:43 Oxycodone Hcl (*Crx) 5 Mg Tab Ir PO 5 mg Q4HR CARLOS Administration Oxycodone HCl 5 mg 01/09/23 16:29 Oxycodone Hcl (*Crx) 5 Mg Tab Ir PO Q4H PRN Pain Rated 4-10 Polyethylene Glycol 17 gm 01/10/23 09:00 Polyethylene Glycol 3350 17 Gm Powd.Pack PO QAM CARLOS Senna/Docusate Sodium 2 tab 01/09/23
--- NOTE | 2023-01-10 07:41 | PM.DS ---
DS: Admitting Diagnosis Discharge Date 01/10 Admitting Diagnosis left knee DJD DS: Discharge Diagnosis Discharge Diagnosis (1) S/P total knee arthroplasty: Code(s): Z96.659 - Presence of unspecified artificial knee joint Status: Acute DS: Summary Hospital Course Hospital Course: 67-year-old female underwent left total knee arthroplasty on 01/09. Underwent the procedure without complications. Postoperatively she has been afebrile vital signs are stable. She is on Eliquis for DVT prophylaxis. Patient is weight-bearing as tolerated. She is on scheduled Tylenol as well as oxycodone 5 mg. She is also on Flexeril p.r.n.. Were not using Celebrex on her due to her chronic renal insufficiency. She his on 2 week course of doxycycline due to her chronic renal insufficiency. She will be discharged home on 01/10. She has outpatient therapy starting next Saturday. On postop day 1 her dressing was dry and intact. Neurovascularly she is intact. She also go home on Senokot MiraLax for constipation. She will utilize Tylenol 650 q.6 hours at home. Patient was advised to keep leg elevated home prevent swelling but do her exercise on hourly basis. She was advised any questions or concerns she is to call the office otherwise we will see her at her appointed date. She was given a heel lift for her right shoe that she is to use when she is ambulating to help with her extension on the left knee. Time Spent with Patient Time attestation: Total time spent providing and/or coordinating discharge services: DS: Data Data Completed and Pending Labs on day of discharge: Labs from last 24 hours 01/09/23 10:17 Blood Type O Positive Antibody Screen Negative Discharge Plan Discharge Patient Disposition: Home, Self-Care Discharge Instructions: TITO PADILLA M.D [facility], [address] [address] POST-OPERATIVE DISCHARGE INSTRUCTIONS TOTAL KNEE ARTHROPLASTY 1. When resting, lie on back with leg elevated above heart to minimize swelling. Significant swelling could indicate a blood clot and if this occurs call the office (or go to the ER) to have a venous ultrasound. 2. Do exercise 5 times a day. 3. Do not sit with leg down except for meals. 4. Wound Care: Nursing will give additional dressings at discharge. Patient to change dressing at home 1 week from surgery, then maintain until seen in office. 5. May shower with dressing in place. 6. Follow weight bearing status instructions. IMPORTANT: Remember not to sit in the chair for more than 30 minutes at a time. As a rule, during the first 14 days after surgery, only sit in the chair to work on the chair knee bending stretch exercise, for meals or for use of the restroom. Sitting in the chair promotes significant swelling in the knee and leg which will make the knee stiff and more painful and which simulates having a blood clot in the veins of the leg. If this type of significant diffuse swelling occurs, an ultrasound at the hospital will be necessary to rule out a blood clot. Be up walking around with the walker for a few minutes every hour while awake and then rest laying on your back on the couch or in bed with your leg elevated on cushions or pillows. Do not rest in the chair. Patient Instructions: Apixaban (By mouth) Follow-up/Referrals: Tito Padilla MD [Physician] - Keep Reg. Scheduled Appt. Discharge Medications: New Eliquis 2.5 mg Tablet 2.5 mg PO Q12HR Qty: 28 0RF cyclobenzaprine 10 mg Tablet 10 mg PO Q8H PRN (Reason: Muscle Spasm) Qty: 40 0RF polyethylene glycol 3350 [Miralax] 17 gram Powder In Packet 17 g PO QAM Qty: 30 0RF sennosides-docusate sodium [Senokot-S] 8.6-50 mg Tablet 2 tab PO BID Qty: 60 0RF doxycycline hyclate 100 mg Tablet 100 mg PO Q12HR Qty: 28 0RF oxycodone 5 mg Tablet 5 mg PO Q4HR Qty: 50 0RF Continued c
[2023-01-10 08:00] VITALS: BP 129/54; PULSE 68; RESP 12; TEMP 37.1; O2SAT 98
[2023-01-10] MEDS: SENNA/DOCUSATE SODIUM TABLET 2 TAB PO (08:45)
[2023-01-10] MEDS: LETROZOLE (*CHEMO) 2.5 MG TABLET PO (08:46)
[2023-01-10] MEDS: polyethylene glycoL 3350 17 GM POWD.PACK PO (08:46)
[2023-01-10] MEDS: THERAPEUTIC MULTIVITAMINS/MINERALS TAB (*BKC) 1 TABLET PO (08:46)
[2023-01-10] MEDS: CALCIUM CARBONATE (OSCAL) 500 MG TABLET PO (08:46)
[2023-01-10] MEDS: APIXABAN 2.5 MG TABLET PO (08:46)
[2023-01-10] MEDS: FERROUS SULFATE 324 MG TABLET PO (08:46)
[2023-01-10] MEDS: CHOLECALCIFEROL 1,000 UNITS TABLET 1000 UNITS PO (08:46)
[2023-01-10] MEDS: DOXYCYCLINE HYCLATE 100 MG TABLET PO (08:46)
[2023-01-10 09:11] LABS: Basophils Percent Auto 0.2 % (0.2-1.2); Hematocrit 29.5 % (37.0-47.0); Hemoglobin 9.8 g/dL (12.0-15.0); Immature Granulocyte Absolute 0.06 K/mm3 (0.00-0.031); Immature Granulocyte Percent A 0.5 % (0-0.5); Lymphocytes Absolute Auto 0.55 K/mm3 (0.9-3.2); Lymphocytes Percent Auto 4.9 % (18.3-44.2); Mean Corpuscular HGB Conc 33.2 g/dl (32-36); Mean Corpuscular Hemoglobin 30.5 pg (26-34); Mean Corpuscular Volume 91.9 fl (80-100); Mean Platelet Volume 8.8 fl (7.4-10.4); Monocytes Absolute Auto 0.4 K/mm3 (0.1-0.6); Monocytes Percent Auto 3.5 % (2.6-8.5); Neutrophils Absolute Auto 10.1 K/mm3 (1.3-6.7); Neutrophils Percent Auto 90.9 % (45.5-73.1); Platelet Count Result 218 k/mm3 (150-375); Red Blood Count 3.21 M/mm3 (4.2-5.4); Red Cell Distribution Width 12.3 % (11.5-14.5); White Blood Count 11.1 K/mm3 (4.5-10.0)
[2023-01-10 09:21] LABS: Anion Gap 9 mmol/L (8-16); Blood Urea Nitrogen 22 mg/dL (7-17); Calcium 9.1 mg/dL (8.4-10.2); Carbon Dioxide 22 mmol/L (22-30); Chloride 102 mmol/L (98-107); Estimated CRCL calculation 41 ml/min; Estimated Glomerular Filt Rate 45; Glucose 139 mg/dL (65-110); Potassium 4.2 mmol/L (3.4-5.0); Sodium 133 mmol/L (137-145)
--- NOTE | 2023-01-10 09:24 | P.PNAN_ITS ---
Anes - Prog Note Post-Op Date/Time: 01/10/23 09:24 Cardiovascular status: normal Respiratory status: normal Airway patency: baseline Mental status: baseline Post-Op hydration status: normal Vital Signs: Last Vital Signs Temp 98.8 F 01/10/23 08:00 Pulse 68 01/10/23 08:00 Resp 12 01/10/23 08:00 BP 129/54 L 01/10/23 08:00 Pulse Ox 98 01/10/23 08:00 O2 Del Method Room Air 01/10/23 07:44 O2 Flow Rate 2 01/09/23 16:45 Pain Score (VAS): 5 I/O: Intake & Output 01/09/23 01/10/23 01/10/23 23:59 07:59 15:59 Intake Total 300 400 Output Total 950 Balance 300 -550 Laboratory Tests 01/10/23 09:03 01/09/23 01/10/23 01/10/23 10:17 09:03 09:03 WBC Pending RBC Pending Hgb Pending Hct Pending MCV Pending MCH Pending MCHC Pending RDW Pending Plt Count Pending MPV Pending Immature Gran % (Auto) Pending Neut % (Auto) Pending Lymph % (Auto) Pending Bradley % (Auto) Pending Eos % (Auto) Pending Baso % (Auto) Pending Lymph # (Auto) Pending Bradley # (Auto) Pending Eos # (Auto) Pending Baso # (Auto) Pending Abs Immat Gran (auto) Pending Absolute Neuts (auto) Pending Absolute Nucleated RBC Pending Nucleated RBC % Pending Sodium 133 L Potassium 4.2 Chloride 102 Carbon Dioxide 22 Anion Gap 9 BUN 22 H D Creatinine 1.20 H Estim Creat Clear Calc 41 Estimated GFR 45 L Glucose 139 H Calcium 9.1 Blood Type O Positive Antibody Screen Negative Post-procedural complaints: none Patient Feedback: Patient satisfied with anesthetic care.
[2023-01-10 10:14] VITALS: BP 111/53; PULSE 65; RESP 12; TEMP 36.9; O2SAT 98
--- NOTE | 2023-01-10 11:15 | PM.IMPN ---
Progress Note: A&P Assessment and Plan (1) S/P total knee arthroplasty: Code(s): Z96.659 - Presence of unspecified artificial knee joint Status: Acute Assessment and Plan: Pain management as per orthopedic physician PT OT per orthopedic physician Anticoagulation per orthopedic physician. According to the records the patient is on Eliquis and has on SCDs Postop care per orthopedic physician. Stable PT/OT is going well Eliquis per ortho for DVT prophylaxis (2) H/O malignant neoplasm of breast: Code(s): Z85.3 - Personal history of malignant neoplasm of breast Status: Acute Assessment and Plan: The patient was continued on letrozole Stable at this time (3) Chronic renal insufficiency, stage III (moderate): Code(s): N18.30 - Chronic kidney disease, stage 3 unspecified Status: Acute Assessment and Plan: followed as an outpatient by Nephrology Currently stable Current BUN/Cr 22/1.20 She stable in her baseline avoid nephrotoxic medications (4) Anemia: Code(s): D64.9 - Anemia, unspecified Status: Acute Assessment and Plan: chronic anemia noted current H&H is 9.8/29.5 probably did to a combined acute blood loss anemia from the surgery and of chronic disease stable at this time Time Spent With Patient Time: 48 minutes Time with patient: Greater than 35 minutes Subjective Date/time seen: 01/10/23 11:15 Interval history: 01/10/23 1115 Patient is lying in bed. Patient states that she is doing okay. She does have some pain when she moves however she denies any current pain while at rest. She is denying any chest pain, shortness a breath, nausea, vomiting, diarrhea or constipation at this time. She does state that her pain is a 5-6/10 when she does walk around to get up. patient is nervous about being discharged however she appears to be fine. She does live close explained to her when to come back if she needed to, However did encourage her to be positive. Patient is stable for discharge at this time 01/09/23 3013 Mary Anne Anton is a 67 year old female who has severe osteoarthritis and has tried conservative measures.? The patient has osteoarthritis in both of her knees.? The patient presented to the hospital today for left total knee arthroplasty and a cortisone injection to the right knee.? The patient stated that she had a cortisone injection August last year and the effects only lasted for about a week and half.? The patient is no longer able to take anti-inflammatories due to her chronic renal failure.? The patient stated that she had been on anti-inflammatories in the past and then was taken off of it because of her chronic kidney disease.? The patient had been taking Tylenol but stated that it really does not help with her discomfort.? She was having difficulty sleeping at night due to the discomfort.? The patient has tried repositioning and different exercises but they still did not help.? Please see operative note.? The patient had a left total knee arthroplasty today and a Depo Medrol and lidocaine injection in the right knee.? Patient's creatinine is anywhere between 1.18 and 1.4.? The patient stated that she has been to a senior portfolio analyst and at this time she is just being monitored.? Hospitalist consult was requested per Dr. Padilla.? Date of service for the consult was 01/09/2023 Review of Systems Review of Systems: All systems reviewed & are unremarkable except as noted in HPI and below Exam Narrative: General: well-nourished, well-appearing 67-year-old female, sitting up in bed, comfortable, NARD Neuro: awake, alert and oriented x4, speech clear, no focal neuro deficits noted HEENMT: normocephalic, atraumatic, EOMI, sclerae anicteric, moist oral mucosa Respiratory: Clear to auscultation bilaterally without crackles, rhonchi or wheezes, nonlabored breathing Cardio: regular r
== END 2023-01-10 15:45 | disposition home or self-care (01) ==
LOC: ANHSURGERY 10:03 → ANH3MED 16:33
PROVIDERS: PCP Family Medicine; Visit Provider Orthopaedic Surgery
PROC: (CPT 27447; principal; 2023-01-09 11:30)
DX: M17.0 Bilateral primary osteoarthritis of knee (principal); G89.18 Other acute postprocedural pain; I12.9 Hypertensive chronic kidney disease with stage 1 through stage 4 chronic kidney disease, or unspecified chronic kidney disease; N18.30 Chronic kidney disease, stage 3 unspecified; D64.9 Anemia, unspecified; Z85.3 Personal history of malignant neoplasm of breast; Z79.811 Long term (current) use of aromatase inhibitors
CPT/HCPCS: 27447; 20610; 36415; 73560; 80048; 85025; 86850; 86900; 86901; 97110; 97116; 97161; 97165; 97530; 97535; 99199; A9270; C1713; C1776; J0131; J0171; J0690; J1040; J1100; J1170; J2250; J2270; J2405; J2704; J2710; J2795; J3010; J3370; J7030; J7120

== ENCOUNTER → 2023-05-07 09:45 | Outpatient (CLI) | payer MEDICARE, OTHER, SELFPAY ==
--- NOTE | ~2023-05-07 | MR_ITS ---
MRI of the lumbar spine Clinical History: Pain radiating to right leg Technique: Axial T2-weighted images, and sagittal T1-weighted, T2-weighted, and T2 fat-sat images wer e acquired. Findings: There is no fracture of the lumbar spine. 4 mm anterolisthesis of L3 over L4 noted. No susp icious bone marrow signal abnormality seen. At L1-L2, there is no disc bulge or herniation. There is moderate facet arthropathy. No central canal stenosis or neural foraminal narrowing. At L2-L3, there is mild diffuse disc bulge with mild facet arthropathy. No central canal stenosis. Th ere is mild left neural foraminal narrowing. Right neural foramen preserved. At L3-L4, there is moderate facet arthropathy with minimal disc bulge. No central canal stenosis. The re is no neural foraminal narrowing. At L4-L5, there is mild diffuse disc bulge with moderate facet arthropathy. No central canal stenosis . There is moderate right neural foraminal narrowing. Left neural foramen preserved. At L5-S1, there is minimal disc bulge with moderate facet arthropathy. No central canal stenosis. The re is moderate to advanced right neural foraminal narrowing. Left neural foramen preserved. Paravertebral soft tissues are unremarkable. Impression: [id number] degenerative changes, as detailed above. 4 mm anterolisthesis of L3 over L4. Reviewed, dictated and finalized at [facility]. Impression: [id number] degenerative changes, as detailed above. 4 mm anterolisthesis of L3 over L4.
== END ==
PROVIDERS: PCP Family Medicine; Visit Provider Physician Assistant Surgical
DX: M79.604 Pain in right leg (principal); M79.605 Pain in left leg; M47.816 Spondylosis without myelopathy or radiculopathy, lumbar region
CPT/HCPCS: 72148

== ENCOUNTER → 2023-06-04 11:47 | Outpatient (CLI) | payer MEDICARE, OTHER, SELFPAY ==
--- NOTE | ~2023-06-04 | US_ITS ---
EXAMINATION: US renal BI DATE: 06/04/2023 12:57 INDICATION: Stage IIIa chronic kidney disease TECHNIQUE: Multiple ultrasound grayscale images of the kidneys were obtained. COMPARISON: None. FINDINGS: The right kidney measures 6.8 x 3.9 x 4.1 cm. The left kidney measures 9.9 x 5.9 x 5.1 cm. The kidney s demonstrate normal echogenicity. There is no hydronephrosis in either kidney. No stones identified . The bladder is normal. IMPRESSION: 1. Asymmetric mild right renal atrophy. Otherwise normal kidneys with no hydronephrosis. Reviewed, dictated and finalized at location A. IMPRESSION: 1. Asymmetric mild right renal atrophy. Otherwise normal kidneys with no hydro nephrosis.
== END ==
PROVIDERS: PCP Family Medicine; Visit Provider Internal Medicine Nephrology
DX: N18.31 Chronic kidney disease, stage 3a (principal); N26.1 Atrophy of kidney (terminal)
CPT/HCPCS: 76775

== ENCOUNTER 2025-07-07 13:28 | Outpatient (CLI) | payer MEDICARE, OTHER, SELFPAY ==
--- NOTE | ~2025-07-07 | XR_ITS ---
XR knee RT min 4V 07/07/2025 13:48 Indication: Right knee pain Procedure: 4 views right knee Comparison: No prior studies for comparison. Findings: There is severe tricompartment osteoarthritis. Small joint effusion. No acute fracture, subluxation or dislocation. Impression: 1: Severe tricompartment osteoarthritis of the right knee. Reviewed, dictated and finalized at location O. Impression: 1: Severe tricompartment osteoarthritis of the right knee.
== END 2025-07-07 13:29 | disposition home or self-care (01) ==
LOC: MICIMG 13:32
PROVIDERS: PCP Family Medicine; Visit Provider Family Medicine
DX: M17.11 Unilateral primary osteoarthritis, right knee (principal)
CPT/HCPCS: 73564

== ENCOUNTER 2025-10-19 12:30 | Outpatient (RCR) | payer MEDICARE, OTHER, SELFPAY ==
--- NOTE | 2025-08-03 14:36 | OPREHPOC ---
Outpatient Therapy Plan of Care This is a Multidisciplinary Plan of Care that may contain components documented by all disciplines (PT, OT, and ST.) PT Problem 1 PT Problem #1 Knowledge Deficit PT Goal 1 Goal / Goal Update *independent with HEP Target Visit 8 PT Problem 2 PT Problem #2 Pain PT Goal 1 Goal / Goal Update 1* pt report pain rating at worst of 2/10 2* radicular pain into R LE to knee at worst 3* pt report with sleeping, awaken due to pain 1x /night Target Visit 8 PT Problem 3 PT Problem #3 Impaired Flexibility PT Goal 1 Goal / Goal Update increase flexibility over hips, to decrease pull and strain on lumbar-sacral spine anterior hip- quad length with prone knee flexion 1* R 110' 2* L 110' 3* with supine piriformis stretch with cross leg, pt report R = L tightness Target Visit 8 PT Problem 4 PT Problem #4 Impaired Strength PT Goal 1 Goal / Goal Update increase strength of trunk and hips, to improve stability to spine 1*single leg standing R 20 seconds with good stability 2* 2 minute walking test distance of 525' Target Visit 8
--- NOTE | 2025-08-03 14:37 | PTOPEVAL1 ---
Assessment and note entered by Tania Morrell, PT Evaluation Information Assessment Status Evaluation ICD-10 Condition Codes (PT) Pain in low back M54.50,Radiculopathy, lumbar region M54.16,Pain in right knee M25.561,Pain in right ankle and joints of right foot M25.571 Onset mid June 2025 Subjective Information increase pain with returning home after vacation; history of R knee pain/OA- x ray report severe tricompartmental OA MRI of back in 2022: mild to moderate degenerative changes, anteriolisthesis L 3-4 increase pain with stairs- radicular into R LE to lateral ankle; activity: independent with light home and self care tasks Reported Pain Level Pain Score 0: Self Report Additional Pain Score Comments pain range in the past week: 0-4/10; radicular pain into R posterior leg to lateral malleoli aches increase pain: stairs, standing/walking activity 15 minutes decrease pain: sit, rest, tylenol, heat with sleeping awaken due to back pain 2-3x/night; problems getting comfortable, generally sleep on her sides, pillow not help Assessment PT Clinical Summary Mary Anne has the diagnosis of lumbar pain, radicular into R LE and R knee pain/OA. Pain increased over the past month, without trauma or injury. Back index self rating of 36% limitation in activity level. She is retired and active, but pain limits her walking and standing. Medical history includes: L TKR and R knee with severe tricompartment OA per xray report. With the evaluation: poor standing posture of trunk and R LE with knee flexion; decreased ROM of R knee extension, R piriformis, bilateral anterior hip-quad; decrease strength of R knee. Skilled PT services are indicated for modalities for pain control, therapeutic exercises to increase trunk and LE strength and flexibility with education for HEP, body mechanics and pain management. Plan of Care Interventions Electrical Stimulation,Hot Pack/Cold Pack,Manual Therapy,Mechanical Traction,Neuro Re-education, Patient/Caregiver Education,Therapeutic Activities ,Therapeutic Exercise,Ultrasound,Other Other Interventions taping PT Services Indicated Yes Treatment Frequency and 1-2x/wk for 8 visits Duration These treatments will address the objective and functional deficits as defined above. The patient will be advanced safely and appropriately in order for the patient to progress towards his/her prior level of function. Additional exercises will be introduced and as well as a comprehensive home exercise program upon discharge, if needed, ?to ensure carryover of functional gains achieved in the clinic. This treatment plan has been reviewed and agreement upon by the patient.
--- NOTE | 2025-09-03 11:04 | PTOPPROG ---
Assessment and note entered by Mindi Zaldivar, PT Re-Evaluation Information Assessment Status Progress ICD-10 Condition Codes (PT) Pain in low back M54.50,Radiculopathy, lumbar region M54.16,Pain in right knee M25.561,Pain in right ankle and joints of right foot M25.571 Onset mid June 2025 Subjective Information Pt reports 75% better compared to when she started therapy. She is able to tolerate walking long distances at the park during her recent vacation to [place]. Reports she felt pain and discomfort at the end of the day after walking and standing so much. Pain is relieved with rest and stretching. Assessment PT Clinical Summary Pt received 8 treatment sessions and demos good progress with pain levels and general strength, increased gait distance with appropriate orthosis. However, pt continues to show strength deficits elie in the R glute med and piriformis muscles resulting to a mild trendelenburg gait pattern, pain continue to disrupt sleep although pt reported decreased intensity at this time compared to before therapy. This pain and instability of the hip impacts safety with indep community ambulation elie on uneven surfaces. She will benefit from continued skilled PT to address remaining impairments and improve overall strength , stability and safety. Plan of Care Interventions Electrical Stimulation,Gait Training,Hot Pack/Cold Pack,Manual Therapy,Mechanical Traction,Neuro Re- education,Patient/Caregiver Education,Therapeutic Activities,Therapeutic Exercise,Ultrasound,Other Other Interventions taping PT Services Indicated Yes Treatment Frequency and 1-2x/wk for 8 visits Duration These treatments will address the objective and functional deficits as defined above. The patient will be advanced safely and appropriately in order for the patient to progress towards his/her prior level of function. Additional exercises will be introduced and as well as a comprehensive home exercise program upon discharge, if needed, ?to ensure carryover of functional gains achieved in the clinic. This treatment plan has been reviewed and agreement upon by the patient.
--- NOTE | 2025-09-03 11:04 | OPREHPOC ---
Outpatient Therapy Plan of Care This is a Multidisciplinary Plan of Care that may contain components documented by all disciplines (PT, OT, and ST.) PT Problem 1 PT Problem #1 Knowledge Deficit PT Goal 1 Goal / Goal Update *independent with HEP Target Visit 8 Progress Met PT Problem 2 PT Problem #2 Pain PT Goal 1 Goal / Goal Update 1* pt report pain rating at worst of 2/10 2* radicular pain into R LE to knee at worst 3* pt report with sleeping, awaken due to pain 1x /night update 09/03/2025: 1. cont with this goal 2. Pt will report improved sleep quality for 2 consecutive weeks without disruption from back and hip pain. Target Visit 8 Progress Partially Met PT Problem 3 PT Problem #3 Impaired Flexibility PT Goal 1 Goal / Goal Update increase flexibility over hips, to decrease pull and strain on lumbar-sacral spine anterior hip- quad length with prone knee flexion 1* R 110' 2* L 110' 3* with supine piriformis stretch with cross leg, pt report R = L tightness update 09/03/2025: continue with goals 1-3 Target Visit 8 Progress Partially Met PT Problem 4 PT Problem #4 Impaired Strength PT Goal 1 Goal / Goal Update increase strength of trunk and hips, to improve stability to spine 1*single leg standing R 20 seconds with good stability 2* 2 minute walking test distance of 525' update 09/03/2025: 1. single leg standing R 20 seconds with good stability and core activation 2. 2 minute walking test distance of 525' with improved pelvic alignment and mechanics Target Visit 8 Progress Partially Met
--- NOTE | 2025-10-19 14:01 | PTOPDC ---
Assessment and note entered by Mindi Zaldivar PT Evaluation Information Assessment Status Discharge ICD-10 Condition Codes (PT) Pain in low back M54.50,Radiculopathy, lumbar region M54.16,Pain in right knee M25.561,Pain in right ankle and joints of right foot M25.571 Onset mid June 2025 Subjective Information Pt reports she is feeling significantly reduced pain compared to when she first started therapy Reported Pain Level Pain Score 0: Self Report Assessment PT Clinical Summary Pt received a total of 16 treatment sessions and demo good progress with therapy. Reports significant reduction in back pain and improved standing tolerance upto an hour. Modified Oswestry Back Pain Scale is 16% indicating minimal mobility. She has met established goals. However, some discomfort persist and occasionally wakes her up at night but it is more of the R knee versus back. Pt is agreeable to DC and to continue performing exercises at home to maintain gains in therapy. Skilled PT discontinued at this time. Plan of Care PT Services Indicated No
== END 2025-10-19 17:16 | disposition home or self-care (01) ==
LOC: ANHPT 12:30
PROVIDERS: PCP Family Medicine; Visit Provider Family Medicine
DX: M54.31 Sciatica, right side (principal); M25.571 Pain in right ankle and joints of right foot
CPT/HCPCS: 97110; 97112; 97116; 97140; 97161; 97530; 97750